=== PATIENT | male | born 1990 ===

== ENCOUNTER 2021-12-13 11:07 | Outpatient (REF) | payer MEDICAID, SELFPAY ==
--- NOTE | ~2021-12-13 | CT_ITS ---
EXAMINATION: CT ABDOMEN AND PELVIS WITH CONTRAST CLINICAL INFORMATION: Abdominal pain. COMPARISON: Previous CT abdomen are seen not available for comparison. TECHNIQUE: Multidetector volumetric images were obtained from the superior aspect of the liver through the pubic symphysis following administration 85 mL of Omnipaque 350 intravenous contrast. Sagittal and coronal reformatted images were obtained on the technologist's workstation. Oral contrast: No This CT examination was performed using dose optimization techniques as appropriate, variously including the following: *Automated exposure control *Adjustment of mA and/or kV according to patient size (this includes techniques or standardized protocols for targeted exams where dose is matched to indication/reason for exam; i.e. extremities or head) *Use of iterative reconstruction technique DLP: 893 mGy-cm FINDINGS: LUNG BASES: The lung bases are clear. No pleural effusion is seen. Heart size is normal. LIVER, GALLBLADDER, AND BILIARY TREE: The liver is normal in size, shape, and attenuation. No focal hepatic lesion or biliary ductal dilatation is present. The gallbladder is unremarkable with no evidence of radiopaque gallstones, gallbladder wall thickening, or obvious pericholecystic inflammatory changes. There are periportal lymph nodes adjacent and posterior to the pancreatic head measuring 1.8 x 1.1 cm and 1.85 x 1.41 cm. PANCREAS: Unremarkable. SPLEEN: Unremarkable. ADRENAL GLANDS: Unremarkable. KIDNEYS AND URETERS: The kidneys are normal in size, shape, and attenuation. No hydronephrosis, hydroureter, or calculi seen. No perinephric stranding. BLADDER: Unremarkable. GASTROINTESTINAL TRACT: There is scattered stool and gas seen throughout the colon without any significant distention. Oral contrast opacified small bowel loops are of normal caliber. No free air or free fluid seen. ABDOMINAL WALL: No significant hernia is appreciated. LYMPH NODES: There are numerous mesenteric lymph nodes. The largest left mesenteric lymph node measures 1.5 cm. Also visualized are multiple retroperitoneal small shotty lymph nodes. VASCULAR: Unremarkable. PELVIC VISCERA: Imaging through the pelvis reveals no significant abnormality. OSSEOUS STRUCTURES: There is no lytic or sclerotic process seen. CT/CT abdomen pelvis w con IMPRESSION: Significant mesenteric and retroperitoneal lymphadenopathy. The largest abnormally sized lymph node is in the left mesentery as described above. Larger lymph nodes are seen in the periportal region posterior to the head of the pancreas measuring 1.9 cm. Mild constipation. No obstruction. Fleischner guidelines were followed.
[2021-12-13] MEDS: iohexoL 350 MG/ML 100 ML INFUS..BTL IV (13:51)
[2021-12-13] MEDS: Barium Sulfate Oral (Vanilla) 450 ML ORAL.SUSP 900 ML PO (13:53)
== END 2021-12-13 11:08 | disposition home or self-care (01) ==
LOC: HO.CT 11:07
PROVIDERS: PCP Nurse Practitioner Family; Visit Provider Internal Medicine
DX: R59.0 Localized enlarged lymph nodes (principal); R10.9 Unspecified abdominal pain
CPT/HCPCS: 74177; Q9967